=== PATIENT | female | born 1955 | race Caucasian/White ===

== ENCOUNTER 2020-11-01 07:38 | Emergency (ER) | payer OTHER ==
[~2020-11-01] VITALS: Ht 165.1 cm; Wt 86.2 kg
[~2020-11-01 07:38] MED LIST: CELEXA40 MG PO
[2020-11-01] MEDS ORDERED: LEVO-T75 MCG PO (07:53)
[2020-11-01] MEDS ORDERED: AMLODIPINE BESY10 MG PO (07:54)
[2020-11-01] MEDS ORDERED: HYDROCHLOROTHIA25 M2 PO (07:54)
[2020-11-01 08:51] VITALS: BP 130/74
== END 2020-11-01 08:51 | disposition home or self-care (01) ==
LOC: ER 07:38
DX: M25.511 Pain in right shoulder (principal); I10 Essential (primary) hypertension; E03.9 Hypothyroidism, unspecified; Z98.890 Other specified postprocedural states; W18.30XA Fall on same level, unspecified, initial encounter; Y93.89 Activity, other specified; Y92.89 Other specified places as the place of occurrence of the external cause; Y99.9 Unspecified external cause status